=== PATIENT | male | born 1980 | race Hispanic/Latino ===

== ENCOUNTER 2018-07-08 19:02 | Emergency (ER) | payer OTHER ==
[2018-07-08 19:20] VITALS: BMI 25.7
[2018-07-08 19:21] VITALS: BP 145/75; PULSE 58; RESP 16; TEMP 98.2; O2SAT 97
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
[2018-07-08] MEDS ORDERED: Lidocaine 1% (10 ml) Inj INJ STA (19:50)
[2018-07-08] MEDS ORDERED: Lidocaine Hydrochloride 1% 10 ML ONE (20:12)
--- NOTE | 2018-07-09 09:25 | RAD ---
PROCEDURE: Right Hand Radiographs. HISTORY: Post-reduction COMPARISON: Right hand radiographs 07/08/2018 7:37 p.m.. TECHNIQUE: 3 views obtained. FINDINGS: Postreduction imaging of the right hand reveals adequate result at the proximal interphalangeal joint of the right long finger as compared to preliminary radiographs from 07/08/2018 7:37 p.m.. No acute fracture is appreciated or other joint pathology. Local soft tissues are unremarkable diffusely. IMPRESSION: Adequate reduction at the proximal interphalangeal joint right long finger. No interval fracture identified.
--- NOTE | 2018-07-09 09:26 | RAD ---
PROCEDURE: Right Hand Radiographs. HISTORY: 3rd digit pain COMPARISON: None. TECHNIQUE: 3 views obtained. FINDINGS: BONES: No fracture identified throughout the right hand. However, there is the posterior subluxation of the middle phalanx of the right long finger posteriorly relative to the proximal phalanx right long finger. No fracture appreciable throughout. No destructive bony lesion evident. Remaining joints are unremarkable throughout the right hand. JOINTS: Subluxation at the PIP joint as discussed above, right long finger. SOFT TISSUES: Normal. OTHER FINDINGS: None. IMPRESSION: Posterior subluxation middle phalanx right long finger at the level of the proximal interphalangeal joint. No acute fracture appreciated throughout the right hand.
== END 2018-07-08 20:30 | disposition home or self-care (01) ==
LOC: H.ER 19:02
DX: S63.202A Unspecified subluxation of right middle finger, initial encounter (principal); W19.XXXA Unspecified fall, initial encounter; Y92.89 Other specified places as the place of occurrence of the external cause